=== PATIENT | female | born 1945 | race Caucasian/White ===

== ENCOUNTER → 2017-03-02 | Outpatient (CLI) | payer BC ==
[2014-04-02 06:17] VITALS: BP 108/79
[~2017-03-02] MED LIST: ASPI-630 PO; CALC-128 PO; HYDR10TA2 PO; Hydrocodone/Acetaminophen PO; METO100T11 PO; METO100T5 PO; MULT1TAB52 PO; OMEG1CAP54 PO; PRAV20TA2 PO; TAMO20TA PO
--- NOTE | 2017-03-02 09:50 | RAD ---
DATE: 06/11/2017 EXAM: MAMMO ELAINE DIAG BILAT HISTORY: Yearly mammogram. History of left breast malignancy 2013 COMPARISON: 02/01/2016 FINDINGS: Breast Density: SCATTERED The breast parenchyma shows scattered fibroglandular densities. Breast parenchyma level B. There has not been a significant change in the appearance of the breasts compared to the previous exam IMPRESSION: Benign findings BI-RADS CATEGORY: 2 BENIGN FINDING(S) RECOMMENDED FOLLOW-UP: 12M 12 MONTH FOLLOW-UP PQRS compliance statement: Patient information was entered into a reminder system with a target due date 03/02/2018 for the next mammogram. Mammography is a sensitive method for finding small breast cancers, but it does not detect them all and is not a substitute for careful clinical examination. A negative mammogram does not negate a clinically suspicious finding and should not result in delay in biopsying a clinically suspicious abnormality. "Our facility is accredited by the [employer] Mammography [employer]."
== END | disposition home or self-care (01) ==
LOC: KCIC MAMMO 08:54
PROVIDERS: ATTEND Psychiatry & Neurology Child & Adolescent Psychiatry
DX: R92.8 Other abnormal and inconclusive findings on diagnostic imaging of breast (principal); Z85.3 Personal history of malignant neoplasm of breast
CPT/HCPCS: G0204; G0279; 77062; 77066

== ENCOUNTER → 2017-04-20 | Day surgery (SDC) | payer BC ==
[~2017-04-20] MED LIST changes: +IV RINGERS,LACTATED 1000ML 1,000 ML IV SCH; +LIDOCAINE 2% PF Vial for OR 5 ML VIAL. ONE; +METO-247 PO; -METO100T11 PO; +PROPOFOL 40 ML IV ONE
[2017-04-20 09:30] VITALS: BP 131/74
== END | disposition home or self-care (01) ==
LOC: ENDOS 07:28
PROVIDERS: ATTEND Internal Medicine Gastroenterology
DX: Z12.11 Encounter for screening for malignant neoplasm of colon (principal); K64.0 First degree hemorrhoids; K57.30 Diverticulosis of large intestine without perforation or abscess without bleeding; E78.00 Pure hypercholesterolemia, unspecified; I10 Essential (primary) hypertension; M19.91 Primary osteoarthritis, unspecified site; F32.9 Major depressive disorder, single episode, unspecified; F17.200 Nicotine dependence, unspecified, uncomplicated; Z72.89 Other problems related to lifestyle; Z87.39 Personal history of other diseases of the musculoskeletal system and connective tissue; Z72.0 Tobacco use; Z88.6 Allergy status to analgesic agent; Z88.0 Allergy status to penicillin
CPT/HCPCS: 45378; J2704; J2001

== ENCOUNTER → 2018-02-27 | Outpatient (CLI) | payer MEDICARE, BC | END | disposition home or self-care (01) | LOC: KCIC MAMMO 09:40 | DX: R92.8 Other abnormal and inconclusive findings on diagnostic imaging of breast (principal); Z85.3 Personal history of malignant neoplasm of breast | CPT/HCPCS: 77066; G0279 ==

== ENCOUNTER → 2019-03-19 | Outpatient (CLI) | payer MEDICARE ==
[2017-04-20 09:30] VITALS: BP 131/74
[~2019-03-19] MED LIST changes: +ALEN70TA3 PO; -IV RINGERS,LACTATED 1000ML 1,000 ML IV SCH; -LIDOCAINE 2% PF Vial for OR 5 ML VIAL. ONE; -PROPOFOL 40 ML IV ONE
--- NOTE | 2019-03-19 13:32 | KCIC ---
EXAM: Bilateral digital diagnostic mammogram with tomosynthesis. HISTORY: 73-year-old female with a history of left breast cancer, status post left breast conservation therapy, presents for annual mammography. TECHNIQUE: Full-field digital craniocaudal and mediolateral oblique 2D and 3D tomosynthesis images of both breasts are obtained for evaluation. Computer aided detection with doughD software version 9.3 was applied. COMPARISON: 02/27/2018, 03/02/2017, 01/29/2015 BREAST PARENCHYMAL DENSITY: Level B - Scattered fibroglandular densities. FINDINGS: There is stable increased density with architectural distortion within the posterior medial aspect of the left breast due to a lumpectomy bed. There is stable areas of asymmetry and nodularity within both breasts. There are few benign calcifications. There is no new suspicious mass, calcifications or architectural distortion within either breast. IMPRESSION: 1. Stable findings consistent with left breast conservation therapy. 2. No new suspicious mammographic finding. 3. BI-RADS Category 2: Benign finding(s). RECOMMENDATION: Annual mammography is recommended. If your mammogram demonstrates that you have dense breast tissue, which could hide abnormalities, and if you have other risk factors for breast cancer that have been identified, you might benefit from supplemental screening tests that may be suggested by your ordering physician. Dense breast tissue, in and of itself, is a relatively common condition. This information is not provided to cause undue concern, but rather to raise your awareness and to promote discussion with your physician regarding the presence of other risk factors, in addition to dense breast tissue. A report of your mammography results will be sent to you and your physician. You should contact your physician if you have any questions or concerns regarding this report. Mammography is a sensitive method for finding small breast cancers, but it does not detect them all and is not a substitute for careful clinical examination. A negative mammogram does not negate a clinically suspicious finding and should not result in delay in biopsying a clinically suspicious abnormality. PQRS compliance statement - Patient information was entered into a reminder system with a target due date for the next mammogram. "Our facility is accredited by the [employer] Mammography Program." Electronically signed by: Vanna Adams MD (03/19/2019 1:29 PM) [id number]
== END | disposition home or self-care (01) ==
LOC: KCIC MAMMO 12:42
PROVIDERS: ATTEND Internal Medicine Hematology & Oncology
DX: R92.1 Mammographic calcification found on diagnostic imaging of breast (principal); D05.12 Intraductal carcinoma in situ of left breast; Z85.3 Personal history of malignant neoplasm of breast
CPT/HCPCS: 77066; G0279; 77062

== ENCOUNTER → 2019-12-23 | Outpatient (CLI) | payer MEDICARE ==
[2017-04-20 09:30] VITALS: BP 131/74
[~2019-12-23] MED LIST changes: +MULT-445 PO; -MULT1TAB52 PO
--- NOTE | 2019-12-23 11:17 | RAD ---
Triple-lumen Clinical indications: Screening for abdominal aortic aneurysm. Family history of abdominal aortic aneurysm. Findings: Duplex sonography of the abdominal aorta was performed including duarte scale image evaluation with color and Doppler waveform analysis. The AP and transverse dimensions of the proximal abdominal aorta are 1.9 cm and 1.9 cm respectively. The AP and transverse dimensions of the mid abdominal aorta are 1.9 cm and 2.1 cm respectively. The AP and transverse dimensions of the distal abdominal aorta are 1.3 cm and 1.5 cm respectively. The caliber of the right common iliac artery is 1.2 cm. The caliber of the left common iliac artery is 1.4 cm. The peak systolic flow velocity of the abdominal aorta is: 117 cm/sec. No focal aneurysmal dilatation of the abdominal aorta is seen. Impression: No abdominal aortic aneurysm. Electronically signed by: Clint Saavedra MD (12/23/2019 11:14 AM) [id number]
== END | disposition home or self-care (01) ==
LOC: US 11:01
PROVIDERS: ATTEND Family Medicine
DX: Z13.6 Encounter for screening for cardiovascular disorders (principal); Z82.49 Family history of ischemic heart disease and other diseases of the circulatory system
CPT/HCPCS: 76770

== ENCOUNTER → 2020-03-24 | Outpatient (CLI) | payer MEDICARE ==
[2017-04-20 09:30] VITALS: BP 131/74
--- NOTE | 2020-03-26 08:18 | KCIC ---
BILATERAL SCREENING MAMMOGRAM, 3-D History: Routine screening. Comparison: Bilateral mammogram March 02, 2017 and back to 2014. Technique: MLO and CC digital tomosynthesis (3D) images obtained. Radiologist reviewed these images on dedicated workstation. Findings: Breast Tissue Density B : There are scattered areas of fibroglandular density. Postlumpectomy changes of the inner posterior left breast are stable. There are a few benign calcifications. Stable biopsy clip upper left breast. There are no dominant masses, suspicious microcalcifications, or architectural distortion. IMPRESSION: No mammographic evidence of malignancy. Recommend routine screening. BI-RADS category 2: Benign findings. The images were reviewed with computer-aided detection. Patient information is entered into reminder system with a target due date for the next screening mammogram. Mammography is the most sensitive method for finding small breast cancers, but it does not detect them all and is not a substitute for careful clinical examination. A negative mammogram does not negate a clinically suspicious finding and should not result in delay in biopsying a clinically suspicious abnormality. "Our facility is accredited by the [employer] Mammography Program." Electronically signed by: Donato French MD (03/26/2020 8:15 AM) [email or web address]
== END | disposition home or self-care (01) ==
LOC: KCIC MAMMO 08:57
PROVIDERS: ATTEND Internal Medicine Hematology & Oncology
DX: Z12.31 Encounter for screening mammogram for malignant neoplasm of breast (principal); Z85.3 Personal history of malignant neoplasm of breast
CPT/HCPCS: 77063; 77067

== ENCOUNTER → 2020-11-23 | Outpatient (CLI) | payer MEDICARE ==
[2017-04-20 09:30] VITALS: BP 131/74
[~2020-11-23] VITALS: Ht 152.4 cm; Wt 61.2 kg
[~2020-11-23] MED LIST changes: +SINCALIDE 1.22 MCG in IV NORMAL SALINE 50ML 30 ML IV ONE
--- NOTE | 2020-11-23 13:31 | RAD ---
HEPATOBILIARY SCAN WITH EJECTION FRACTION History: Reason: EPIGASTRIC PAIN AND NAUSEA / Spl. Instructions: / History: COMPARISON: Limited abdominal ultrasound, same day. Procedure: Serial static images are obtained of the liver and biliary system in the frontal projectio n following IV administration of 5.5 mCi of Technetium 99m Choletec. After filling of the gallbladd er, 1.2 mcg of sincalide were infused over 30 minutes and dynamic imaging continued over this period. The gallbladder ejection fraction was calculated. Findings: There is prompt hepatic clearance of tracer from the blood pool. There is homogeneous distribution th roughout the liver. There is normal filling of the gallbladder and normal emptying into the biliary s ystem and small bowel. The gallbladder ejection fraction measures 11% (normal gallbladder EF is 35% o r greater). Patient had abdominal cramping during sincalide infusion. IMPRESSION: 1. The cystic duct and common bile duct are patent. Negative for acute cholecystitis. 2. The gallbladder ejection fraction is abnormal measuring 11%. Findings may indicate gallbladder dys kinesia or chronic cholecystitis. Electronically signed by: Donato French MD (11/23/2020 1:29 PM) [id number]
--- NOTE | 2020-11-23 16:07 | RAD ---
CLINICAL HISTORY: epigastric/ruq pain COMPARISON: None available. TECHNIQUE: Limited ultrasound examination of the right upper quadrant of the abdomen was performed FINDINGS: The head and body of the pancreas are unremarkable. The tail is obscured by intestinal gas.. Liver: 11.8 cm in length. Increased hepatic echogenicity relative to the right kidney consistent wi th hepatic steatosis.. There are no focal liver lesions. Flow seen within the portal veins. Biliary: No cholelithiasis. No wall thickening or pericholecystic fluid. There is no pain with dire ct transducer pressure over the gallbladder. Common bile duct measures 0.3 cm. Right Kidney: 9.6 cm in bipolar length. Normal renal cortical echotexture and thickness. No focal janie al lesion, shadowing renal calculus or hydronephrosis. Visualized portions of the abdominal aorta and inferior vena cava are unremarkable. There is no free fluid in the subhepatic space. IMPRESSION: Mild increased echogenicity of the liver likely fatty liver. Otherwise, normal sonographic survey of the right upper quadrant Electronically signed by: Durga Qureshi MD (11/23/2020 4:05 PM) [id number]
== END ==
LOC: US 08:44
PROVIDERS: ATTEND Internal Medicine Gastroenterology
DX: R10.13 Epigastric pain (principal); R10.2 Pelvic and perineal pain
CPT/HCPCS: 76705; 78227; A9537; J2805

== ENCOUNTER 2020-12-21 06:02 | Day surgery (SDC) | payer MEDICARE ==
[~2020-12-21] VITALS: Ht 156.2 cm; Wt 57.0 kg
[~2020-12-21 06:02] MED LIST changes: +CHOL500050 PO; +HYDROmorphone 2 MG/ML VIAL IVP PRN; +IV RINGERS,LACTATED 1000ML 1,000 ML IV SCH; +MORPHINE SULFATE 2 MG/ML VIAL. IVP PRN; +PROCHLORPERAZINE 10 MG/2 ML VIAL. IVP PRN; -SINCALIDE 1.22 MCG in IV NORMAL SALINE 50ML 30 ML IV ONE; +fentaNYL PF VIAL 100 MCG/2 ML VIAL IVP PRN
[2020-12-21] MEDS ORDERED: PROPOFOL 10 MG/ML (20ML) VIAL. IV ONE (06:11)
[2020-12-21] MEDS ORDERED: DEXAMETHASONE SOD PHOS 4 MG/ML VIAL ONE (06:11)
[2020-12-21] MEDS ORDERED: ONDANSETRON PF 4 MG/2 ML VIAL. ONE (06:11)
[2020-12-21] MEDS ORDERED: LIDOCAINE 2% PF 5 ML VIAL. ONE (06:11)
[2020-12-21] MEDS ORDERED: ROCURONIUM 50 MG/5 ML VIAL. ONE (06:12)
[2020-12-21 06:24] VITALS: BP 137/65
[2020-12-21] MEDS ORDERED: SURGICEL HEMOSTAT 4X8 EACH. ONE (06:59)
[2020-12-21] MEDS ORDERED: BUPIVACAINE MPF 0.5% 30 ML VIAL. ONE (06:59)
[2020-12-21] MEDS ORDERED: IOHEXOL 300 MG/ML 50 ML VIAL. ONE (06:59)
[2020-12-21] MEDS ORDERED: fentaNYL PF VIAL 100 MCG/2 ML VIAL ONE (07:00)
[2020-12-21] MEDS ORDERED: PHENYLEPHRINE in 0.9% NACL PF 1 MG/10 ML SYRINGE. IV ONE (07:44)
[2020-12-21] MEDS ORDERED: SEVOFLURANE 61 TO 120 MINUTES. IH ONE (07:51)
[2020-12-21] MEDS ORDERED: NEOSTIGMINE METHYLSULFATE 5 MG/5 ML SYRINGE. ONE (07:52)
[2020-12-21] MEDS ORDERED: GLYCOPYRROLATE 1 MG/5 ML VIAL. ONE (07:52)
[2020-12-21] MEDS ORDERED: SUGAMMADEX SODIUM 200 MG/2 ML VIAL. IVP ONE (08:30)
--- NOTE | 2020-12-21 08:32 | RAD ---
DG INTRAOPERATIVE CHOLANGIOGRAM Clinical Indication: Epigastric pain and nausea. Abnormal HIDA scan. Comparison: Abdominal ultrasound November 23, 2020. Findings: Fluoroscopic guidance is provided by the technologist. Total fluoroscopy time 0.22 minutes. 3 fluoroscopic spot images. Injection of cystic duct remnant. Contrast opacifies the extrahepatic duct which appears normal calib er. There is contrast spillage into the duodenum. No filling defect in the biliary tree is identified . Please refer to the operative note for further details. IMPRESSION: No evidence of choledocholithiasis. Electronically signed by: Donato French MD (12/21/2020 8:29 AM) [id number]
--- NOTE | 2020-12-21 08:37 | PDOC4 ---
Operative Note Operative Note Operative Note: Preoperative Diagnosis: Biliary dyskinesia Postoperative Diagnosis: Same Procedure: Laparoscopic cholecystectomy with intraoperative cholangiogram Surgeons: Don Pediatric Speech Language Pathologist: Mandy GARCIA Anesthesia: Gen. Estimated Blood Loss: 10 mL Specimen: Gallbladder to pathology Drains: None Complications: None Indications: The patient is a 75-year-old female who was referred with biliary dyskinesia. Surgical treatment was offered by means of a laparoscopic cholecystectomy. The risks of surgery were discussed which include bleeding, infection, bile duct injury, bile leak, pain, the potential for additional surgeries or procedures. The patient understands and would like to proceed. Description: The patient was taken to the operating room and laid supine on the operating table. General anesthesia was performed. The abdomen was prepped with ChloraPrep and draped in a standard surgical fashion. A small infraumbilic al incision was made with a scalpel. The Veress needle was then inserted and a pneumoperitoneum was then created. A 5 mm trocar was then inserted and the laparoscope was introduced. In the upper midabdomen a 5 mm trocar was inserted and in the right upper quadrant two 2.3 mm mini lap graspers were inserted. The gallbladder was retracted cephalad. The cystic duct was dissected free from surrounding tissues. One clip was placed on the duct near the gallbladder junction. An opening was made in the duct and a cholangiocatheter placed within and secured with a clip. Using contrast dye and fluoroscopy an intraoperative cholangiogram was performed that appeared unremarkable. The clip and catheter were then withdrawn. Three clips were placed on the cystic duct and it was divided. The cystic artery was then identified, dissected free, doubly clipped and divided as well. The gallbladder was then mobilized away from the liver with cautery. The umbilical 5 millimeter trocar was exchanged for an 11 millimeter trocar. The gallbladder was then placed in an endoscopic bag and extracted at the umbilical trocar site. The fascia there was closed with an 0 Vicryl suture and infiltrated with 0.5% marcaine. All blood and irrigation fluid was suctioned and hemostasis was good. The remaining ports were removed and the pneumoperitoneum was relieved. The skin incisions were closed using 4-0 Monocryl suture. Steri-Strips and dressings were then applied. The patient tolerated the procedure well and was sent to the recovery room in stable condition. At the end of the case all counts were correct. UZIEL SUNG MD Dec 21, 2020 08:37
--- NOTE | 2020-12-21 08:48 | DISCH ---
DISCHARGE INSTRUCTIONS Condition on Discharge Condition on Discharge: Unstable Activity After Discharge Activity Instructions for Disc: Other, see below (no lifting over 20 lbs X 2 weeks) Diet after Discharge Diet after Discharge: Regular Wound Incision Care Wound/Incision Care: Other, see below (may remove bandaids tomorrow and shower) Follow-Up Follow up with: Dr Sung in 2 weeks in office, call for appointment [phone] UZIEL SUNG MD Dec 21, 2020 08:48
[2020-12-21] MEDS ORDERED: HYDROcodone/APAP 5/325MG 1 TAB TABLET PO ONE (09:00)
[2020-12-21] MEDS ORDERED: PROCHLORPERAZINE 10 MG/2 ML VIAL. ONE (09:13)
[2020-12-21 09:19] VITALS: BP 130/67
--- NOTE | 2020-12-22 18:06 | PATHOLOGY ---
[facility] Accession Number: [id number] . 01 Material submitted: . gallbladder - GALLBLADDER . 01 Clinical history: . BILIARY DYSKENSIA LAP JIMENA . 02 Diagnosis: Gallbladder, laparoscopic cholecystectomy: - Chronic cholecystitis. - Cystic adenomyosis of gallbladder wall, fundus, focal. (JPM:adam; 12/22/2020) S 12/22/2020 1739 Local . 02 Comment: There are no calculi identified within the gallbladder lumen or specimen container. There is no evidence of malignancy. (JPM:adam; 12/22/2020) . 02 Electronically signed: . Kunal Newell MD, Pathologist NPI- [id number] . 01 Gross description: . Fixative: Formalin Labeled: Gallbladder Specimen received: Intact cholecystectomy specimen Dimensions: 6.7 x 3.4 x 3.2 cm Serosa: Chapin-green and smooth Lymph node: None identified Mucosa: Dark green and velvety Average wall thickness: 0.1 cm Calculi: None identified Abnormalities: The fundus displays a cystic chapin-white nodular area on the serosa measuring 0.7 x 0.6 x 0.3 cm A1- Corporate Logistics Manager body, fundus, and the cystic duct margin (inked black) A2-entire cystic nodular area. ([facility]; 12/21/2020) SYC/SYC 12/21/2020 1807 Local . 02 Pathologist provided ICD-10: K81.1 . 02 CPT . 569536 Specimen Comment: A courtesy copy of this report has been sent to [phone], [phone] Specimen Comment: 1910 Specimen Comment: Report sent to / DR LAMAS Performed at: [address] [place], [place] [address]vd [address], [place], [place] [id number] MD Erick Espino MD Phone: [phone] Performed at: [address] [id number] MD Kunal Newell MD Phone: [phone]
== END 2020-12-21 09:40 | disposition home or self-care (01) ==
LOC: SURG 06:02
PROVIDERS: ATTEND Surgery
DX: K81.1 Chronic cholecystitis (principal); K82.8 Other specified diseases of gallbladder; E78.00 Pure hypercholesterolemia, unspecified; I10 Essential (primary) hypertension; M19.90 Unspecified osteoarthritis, unspecified site; F32.9 Major depressive disorder, single episode, unspecified; Z85.3 Personal history of malignant neoplasm of breast; Z79.899 Other long term (current) drug therapy; Z98.890 Other specified postprocedural states; Z87.891 Personal history of nicotine dependence; Z88.0 Allergy status to penicillin; Z88.8 Allergy status to other drugs, medicaments and biological substances; Z72.89 Other problems related to lifestyle
CPT/HCPCS: 47563; 74300; J0780; J1100; J1956; J2370; J2405; J2704; J3010; J3490; Q9967; 88304; A4213; A4314; A4344; A4364; A4452; A4657; A4930; A6219; C1887; J2710

== ENCOUNTER → 2021-05-04 | Outpatient (CLI) | payer MEDICARE ==
[~2021-05-04] MED LIST changes: -HYDROmorphone 2 MG/ML VIAL IVP PRN; -IV RINGERS,LACTATED 1000ML 1,000 ML IV SCH; -MORPHINE SULFATE 2 MG/ML VIAL. IVP PRN; -PROCHLORPERAZINE 10 MG/2 ML VIAL. IVP PRN; -fentaNYL PF VIAL 100 MCG/2 ML VIAL IVP PRN
--- NOTE | 2021-05-04 11:50 | KCIC ---
Bilateral digital screening mammograms with 3-D tomosynthesis: Reason for examination: Routine screening. History of left breast cancer with lumpectomy. Comparison is made to previous studies dated back to 02/01/2016. Bilateral mammograms in CC and oblique projections were obtained with 2-D imaging and 3-D tomosynthes is imaging on a Siemens Inspiration unit and reviewed on the workstation. Interpretation was made claudia decker the benefit of CAD. The skin and nipples show no abnormalities. No abnormal axillary lymph nodes are seen. The breast par enchyma is heterogeneously dense. (Breast density: Category C.) There are postop changes in the left breast. There are no new dominant masses, suspicious calcifications or architectural distortion. Impression: Postop changes in the left breast. No evidence of new or recurrent malignancy. Recommend routine scre ening. Your patient's mammogram demonstrates that she has dense breast tissue (breast density category C or D), which could hide abnormalities, and if she has other risk factors for breast cancer that have bee n identified, she might benefit from supplemental screening tests that may be suggested by you as her ordering physician. Dense breast tissue, in and of itself, is a relatively common condition. Therefo re, this information is not provided to cause undue concern, but rather to raise your awareness and t o promote discussion with your patient regarding the presence of other risk factors, in addition to d ense breast tissue. Your patient's mammography results will be sent to her. BI-RAD Category 2: Benign. "Our facility is accredited by the [employer] Mammography Program." This patient's information has been entered into a reminder system for the patient to be notified wit h the results of her examination and a target date for the next mammogram. Electronically signed by: Marti Becerril MD (05/04/2021 11:48 AM) [id number]
== END ==
LOC: KCIC MAMMO 09:59
PROVIDERS: ATTEND Family Medicine
DX: Z12.31 Encounter for screening mammogram for malignant neoplasm of breast (principal)
CPT/HCPCS: 77063; 77067